=== PATIENT | female | born 1995 | race Two or more races ===

== ENCOUNTER 2020-05-06 13:23 | Emergency (ER) | payer OTHER ==
[~2020-05-06] VITALS: Ht 160 cm; Wt 45.4 kg
== END 2020-05-06 19:49 | disposition home or self-care (01) ==
LOC: ER 13:23
DX: O20.0 Threatened abortion (principal); O26.851 Spotting complicating pregnancy, first trimester; O36.80X1 Pregnancy with inconclusive fetal viability, fetus 1; Z3A.08 8 weeks gestation of pregnancy

== ENCOUNTER 2020-05-08 10:46 | Outpatient (CLI) | payer OTHER | END 2020-05-08 11:05 | disposition home or self-care (01) | LOC: LAB 10:46 | PROVIDERS: ATTEND Emergency Medicine | DX: O20.0 Threatened abortion (principal) ==

== ENCOUNTER → 2020-05-22 | Outpatient (CLI) | payer OTHER ==
[~2020-05-22] MED LIST: IRON325 MG PO; PROGESTERONE100 M1 PO
== END | disposition home or self-care (01) ==
LOC: PRENATAL 10:28
PROVIDERS: ATTEND Obstetrics & Gynecology Maternal & Fetal Medicine
DX: O26.851 Spotting complicating pregnancy, first trimester (principal); O00.91 Unspecified ectopic pregnancy with intrauterine pregnancy; O36.80X1 Pregnancy with inconclusive fetal viability, fetus 1; Z36.89 Encounter for other specified antenatal screening; Z3A.08 8 weeks gestation of pregnancy

== ENCOUNTER 2020-05-23 06:12 | Inpatient (IN) | payer OTHER ==
[~2020-05-23] VITALS: Ht 91.4 cm; Wt 5.0 kg
[2020-05-23] MEDS ORDERED: PROGESTERONE100 M1 PO (06:29)
[2020-05-23] MEDS ORDERED: IRON325 MG PO (06:29)
== END 2020-05-24 12:13 | disposition home or self-care (01) | DRG 819 ==
LOC: ER 06:12 → SEC-K 07:05 → OB/GYN 07:05
PROVIDERS: ADMIT Obstetrics & Gynecology; ATTEND Obstetrics & Gynecology
PROC: 0UB60ZZ Excision of Left Fallopian Tube, Open Approach (ICD-10-PCS; 2020-05-23)
PROC: 10T20ZZ Resection of Products of Conception, Ectopic, Open Approach (ICD-10-PCS; principal; 2020-05-23 07:45)
DX: O00.102 Left tubal pregnancy without intrauterine pregnancy (principal); Z20.822 Contact with and (suspected) exposure to COVID-19

== ENCOUNTER 2020-12-26 20:38 | Emergency (ER) | payer OTHER ==
[~2020-12-26] VITALS: Ht 160 cm; Wt 45.4 kg
== END 2020-12-27 | disposition home or self-care (01) ==
LOC: ER 20:38
DX: O26.891 Other specified pregnancy related conditions, first trimester (principal); Z33.1 Pregnant state, incidental; Z3A.00 Weeks of gestation of pregnancy not specified

== ENCOUNTER 2021-08-22 12:00 | Inpatient (IN) | payer OTHER ==
[~2021-08-22] VITALS: Ht 160 cm; Wt 2.7 kg
[2021-08-26] MEDS ORDERED: PRENATAL TABLE1 EAC1 PO (07:08)
[2021-08-26] MEDS ORDERED: HYDROXYZINE PAM50 MG (08:22)
== END 2021-08-29 12:32 | disposition home or self-care (01) | DRG 788 ==
LOC: OB/GYN 08-26 06:20 → LDR 08-26 06:20 → OB/GYN 08-26 21:10
PROVIDERS: ADMIT Obstetrics & Gynecology; ATTEND Obstetrics & Gynecology
PROC: 4A1HXCZ Monitoring of Products of Conception, Cardiac Rate, External Approach (ICD-10-PCS; 2021-08-26)
PROC: 10D00Z1 Extraction of Products of Conception, Low, Open Approach (ICD-10-PCS; principal; 2021-08-26 18:00)
DX: O62.0 Primary inadequate contractions (principal); Z3A.39 39 weeks gestation of pregnancy; Z37.0 Single live birth; Z20.822 Contact with and (suspected) exposure to COVID-19